=== PATIENT | female | born 1960 | race Caucasian/White ===

== ENCOUNTER 2018-01-12 18:53 | Emergency (ER) | payer OTHER ==
[2018-01-12] MEDS: CIPROFLOXACIN 0.3% 2.5 ML OPH RIGHT EYE (20:07)
== END 2018-01-12 20:30 | disposition home or self-care (01) ==
LOC: FTE 18:53
DX: H57.8 Other specified disorders of eye and adnexa (principal)
CPT/HCPCS: 99283; Z7502

== ENCOUNTER 2018-02-15 10:00 | Emergency (ER) | payer OTHER ==
[2018-02-15] MEDS ORDERED: VANCOMYCIN 1 GM (PMX) 250 ML IVPB (11:30)
== END 2018-02-15 12:25 | disposition home or self-care (01) ==
LOC: FTE 10:00
DX: S90.121A Contusion of right lesser toe(s) without damage to nail, initial encounter (principal); W18.40XA Slipping, tripping and stumbling without falling, unspecified, initial encounter; Y92.9 Unspecified place or not applicable
CPT/HCPCS: 73660; 99283-25